=== PATIENT | female | born 1955 | race Caucasian/White ===

== ENCOUNTER 2022-09-08 06:12 | Day surgery (SDC) | payer MEDICAID ==
[~2022-09-08] VITALS: Ht 165.1 cm; Wt 92.1 kg
[2022-09-08] MEDS ORDERED: MIDAZOLAM HCL 5 MG/5 ML VIAL ONE ×2 (07:17→10:42)
[2022-09-08] MEDS ORDERED: MEPERIDINE 50 MG/ML VIAL ONE (07:17)
[2022-09-08 15:29] VITALS: BP_SYST 123
== END 2022-09-08 12:30 | disposition home or self-care (01) ==
LOC: SDS 06:12 → SMU 06:32 → SDS 12:30
PROVIDERS: ATTEND Internal Medicine Gastroenterology
DX: R19.5 Other fecal abnormalities (principal); K29.50 Unspecified chronic gastritis without bleeding; D12.2 Benign neoplasm of ascending colon; D12.3 Benign neoplasm of transverse colon; D12.4 Benign neoplasm of descending colon; K57.30 Diverticulosis of large intestine without perforation or abscess without bleeding; K64.8 Other hemorrhoids; K21.9 Gastro-esophageal reflux disease without esophagitis; I10 Essential (primary) hypertension; E11.9 Type 2 diabetes mellitus without complications; K44.9 Diaphragmatic hernia without obstruction or gangrene; J45.909 Unspecified asthma, uncomplicated; Z79.899 Other long term (current) drug therapy
CPT/HCPCS: 45380; 45385; 43239; 87426; 87081; 82962; 36415; 88305; 88312; 88313; 99153; 99152; G0378; J2250; J2175